=== PATIENT | female | born 1965 | race Caucasian/White ===

== ENCOUNTER 2016-08-16 02:32 | Inpatient (IN) | payer BC ==
[~2016-08-16] VITALS: Ht 157.5 cm; Wt 85.0 kg
[~2016-08-16 02:32] MED LIST: AMBIEN10 MG PO; COLACE100 MG PO; IBUPROFEN200 M1 PO; LORAZEPAM0.5 MG PO; MOTRIN800 MG PO; NO HOME MEDS; ONDANSETRON HCL8 MG PO; PERCOCET 5/31 TABLET PO; PROCHLORPERAZIN10 MG PO; TOPROL XL25 MG PO; ZITHROMAX Z-PA250 MG PO
[2016-08-16 03:51] LABS: HEMATOCRIT 41.9 % (36.0-46.0); MCH 30.5 PG (29.0-34.0); MCHC 32.9 G/DL (30.0-36.0); MCV 92.5 FL (83-99); MEAN PLAT.VOLUME 9.9 uM^3 (9.5-12.4); PLATELET COUNT 202 K/uL (156-360); RED BLOOD COUNT 4.53 M/uL (3.80-5.20); WHITE BLOOD COUNT 9.1 K/uL (4.1-10.2)
[2016-08-16 04:13] LABS: D-DIMER ELISA 0.37 mg/L FEU (< 0.57); PROTHROMBIN TIME 9.7 (9.2-11.2); PTT 25.2 (25-32)
[2016-08-16 04:20] LABS: TROP-I INTERPRETATION NEGATIVE; TROPONIN-I < 0.01 ng/mL (0.0-0.30)
[2016-08-16 04:23] LABS: CHLORIDE 105 mEq/L (99-109); POTASSIUM 3.6 mEq/L (3.7-5.4); SODIUM 139 mEq/L (136-147)
[2016-08-16 04:25] LABS: GLUCOSE 133 mg/dL (70-99)
[2016-08-16 04:26] LABS: ANION GAP 13 MEQ/L (2-14)
[2016-08-16 04:27] LABS: TOTAL BILIRUBIN 0.4 mg/dL (0.0-1.0)
[2016-08-16 04:28] LABS: ALKALINE PHOSPHATASE 113 IU/L (3-129)
[2016-08-16 04:29] LABS: GFR ESTIMATE (CALCULATED) > 59 mL/min/
[2016-08-16 04:30] LABS: UREA NITROGEN (BUN) 17 mg/dL (9-23)
[2016-08-16 04:32] LABS: LIPASE 12 U/L (1.0-51.0)
[2016-08-16 04:54] LABS: BASE EXCESS -1.3 mEq/L (-3 to +3); BICARBONATE 24.3 mEq/L (22-26); CARBOXY HGB 4.8 % (0-5); METHEMOGLOBIN 1.2 % (0-1.5); PCO2 43 mm Hg (35-45); PO2 63 mm Hg (80-100); SITE RR; pH 7.36 (7.35-7.45)
[2016-08-16 04:55] LABS: COMMENTS - BLOOD GASES C+A+; FI02 21 %
[2016-08-16 07:50] VITALS: BP 132/73
[2016-08-16 10:55] VITALS: BP 127/69
[2016-08-16 11:29] LABS: TROP-I INTERPRETATION NEGATIVE; TROPONIN-I < 0.01 ng/mL (0.0-0.30)
[2016-08-16] MEDS ORDERED: OXYCODONE HCL5 MG PO (14:40)
[2016-08-16] MEDS ORDERED: ANASTROZOLE1 MG PO (14:40)
[2016-08-16] MEDS ORDERED: SSD25GM TP (14:40)
[2016-08-16] MEDS ORDERED: DURAGESIC12 MCG TD (14:41)
[2016-08-16 15:45] VITALS: BP 122/55
[2016-08-16 16:14] LABS: POINT-OF-CARE METER ID UU14162508
[2016-08-16 16:15] LABS: TROP-I INTERPRETATION NEGATIVE; TROPONIN-I < 0.01 ng/mL (0.0-0.30)
[2016-08-16 19:09] VITALS: BP 107/62
[2016-08-16 21:50] LABS: POINT-OF-CARE METER ID UU14162508
[2016-08-16 23:47] VITALS: BP 118/62
[2016-08-17 03:50] VITALS: BP 123/70
[2016-08-17 07:38] VITALS: BP 114/68
[2016-08-17 08:16] VITALS: BP 123/56
[2016-08-17 12:13] VITALS: BP 132/63
[2016-08-17 16:17] VITALS: BP 117/58
[2016-08-17 19:05] VITALS: BP 126/64
[2016-08-18 00:29] VITALS: BP 149/78
[2016-08-18 03:50] VITALS: BP 145/80
[2016-08-18] MEDS ORDERED: MEDROL DOSEPAK4 MG PO (08:01)
[2016-08-18] MEDS ORDERED: AZITHROMYCIN500 M1 PO (08:01)
[2016-08-18 08:10] VITALS: BP 123/69
== END 2016-08-18 11:09 | disposition home or self-care (01) | DRG 948 ==
LOC: EME 02:32 → EDOF 05:00 → 2EAST 05:37
PROVIDERS: Emergency Medicine; Internal Medicine; Student in an Organized Health Care Education/Training Program
DX: G89.3 Neoplasm related pain (acute) (chronic) (principal); C50.912 Malignant neoplasm of unspecified site of left female breast; J70.0 Acute pulmonary manifestations due to radiation; T21.21XA Burn of second degree of chest wall, initial encounter; T22.242A Burn of second degree of left axilla, initial encounter; Y82.9 Unspecified medical devices associated with adverse incidents; Y63.2 Overdose of radiation given during therapy; K59.00 Constipation, unspecified; Z92.21 Personal history of antineoplastic chemotherapy; I10 Essential (primary) hypertension; W90.0XXA Exposure to radiofrequency, initial encounter; Y84.2 Radiological procedure and radiotherapy as the cause of abnormal reaction of the patient, or of later complication, without mention of misadventure at the time of the procedure; F17.210 Nicotine dependence, cigarettes, uncomplicated; I51.7 Cardiomegaly; R09.02 Hypoxemia; R07.9 Chest pain, unspecified; I44.1 Atrioventricular block, second degree; L59.8 Other specified disorders of the skin and subcutaneous tissue related to radiation; R07.81 Pleurodynia; R94.31 Abnormal electrocardiogram [ECG] [EKG]; Z85.820 Personal history of malignant melanoma of skin; Z92.3 Personal history of irradiation; Z86.711 Personal history of pulmonary embolism; Z86.718 Personal history of other venous thrombosis and embolism; Z85.72 Personal history of non-Hodgkin lymphomas; Z91.19 Patient's noncompliance with other medical treatment and regimen; Y93.9 Activity, unspecified; Y92.9 Unspecified place or not applicable
CPT/HCPCS: 36600; 71020; 71250; 77336; 80053; 81003; 82803; 82948; 83690; 84484; 85027; 85379; 85610; 85730; 93005; 93306; 94640; 94640 76; 94799; 99202; 99281; 99285; J1650; J1815; J1885; J2270; J2405; J2920; J2930; J7030

== ENCOUNTER → 2016-12-14 | Outpatient (CLI) | payer BC ==
[~2016-12-14] MED LIST changes: +ANASTROZOLE1 MG PO; +AZITHROMYCIN500 M1 PO; +DURAGESIC12 MCG TD; +MEDROL DOSEPAK4 MG PO; +OXYCODONE HCL5 MG PO; +SSD25GM TP
== END | disposition home or self-care (01) ==
LOC: AMB 12-06 13:00 → RAD 13:00
PROC: 3E0R3KZ Introduction of Other Diagnostic Substance into Spinal Canal, Percutaneous Approach (ICD-10-PCS; principal; 2016-12-14)
DX: M50.223 Other cervical disc displacement at C6-C7 level (principal); M50.321 Other cervical disc degeneration at C4-C5 level; M43.22 Fusion of spine, cervical region
CPT/HCPCS: 62302; 72126

== ENCOUNTER → 2017-08-16 | Outpatient (CLI) | payer BC ==
[~2017-08-16] MED LIST changes: +CYMBALTA20 MG PO
== END | disposition home or self-care (01) ==
LOC: CDC 08:28
DX: Z01.810 Encounter for preprocedural cardiovascular examination (principal); M25.561 Pain in right knee; S83.231A Complex tear of medial meniscus, current injury, right knee, initial encounter; R94.31 Abnormal electrocardiogram [ECG] [EKG]
CPT/HCPCS: 93000